=== PATIENT | male | born 1960 | race Caucasian/White ===

== ENCOUNTER 2021-04-18 17:16 | Emergency (ER) | payer BC ==
[~2021-04-18] VITALS: Ht 182.9 cm; Wt 115.2 kg
[2021-04-18 18:15] LABS: BASOPHILS % (AUTO) 0.3 % (0.0-2.0); EOSINOPHILS % (AUTO) 0.5 % (0.0-4.0); HEMATOCRIT 46.1 % (36-54); LYMPHOCYTES % (AUTO) 56.1 % (20.5-51.5); MEAN CORPUSCULAR HEMOGLOBIN 32 pg (27-31); MEAN CORPUSCULAR HGB CONC 35 % (32-36); MEAN CORPUSCULAR VOLUME 91 fL (79.0-98.0); MONOCYTES # (AUTO) 0.7 K/uL (0.0-1.0); MONOCYTES % (AUTO) 13.5 % (1.7-9.3); NEUTROPHILS # (AUTO) 1.6 K/uL (1.8-7.7); NEUTROPHILS % (AUTO) 29.6 % (40.0-70.0); PLATELET COUNT (AUTO) 134 K/uL (130-430); RED BLOOD CELL COUNT(AUTO) 5.06 MIL/uL (4.2-6.2); RED CELL DISTRIBUTION WIDTH 13.3 % (9.0-15.0); WHITE BLOOD COUNT (AUTO) 5.4 K/uL (4.8-10.8)
[2021-04-18 18:26] LABS: CALCIUM 9.5 mg/dL (8.4-11.0); CREATININE 1.08 mg/dL (0.55-1.30); POTASSIUM 4.4 mmol/L (3.5-5.1)
[2021-04-18 18:32] LABS: ALBUMIN 3.7 g/dL (3.4-4.8)
[2021-04-18] MEDS ORDERED: INSULIN REGULAR, HUMAN 10 UNITS/0.1 ML INJ IVP ONE (19:45)
[2021-04-18] MEDS ORDERED: NACL 0.9% 1,000 ML IV ONE (19:45)
[2021-04-18 21:20] VITALS: BP_SYST 146
== END 2021-04-18 21:17 | disposition home or self-care (01) ==
LOC: SED 17:16
DX: U07.1 COVID-19 (principal); I10 Essential (primary) hypertension; E11.9 Type 2 diabetes mellitus without complications; Z20.822 Contact with and (suspected) exposure to COVID-19
CPT/HCPCS: 36415; 71045; 80053; 82962; 83605; 84484; 85025; 87040; 87426; 93005; 99285; J1815

== ENCOUNTER 2021-04-23 00:23 | Inpatient (IN) | payer BC, SELFPAY ==
[~2021-04-23] VITALS: Ht 182.9 cm; Wt 114.8 kg
[2021-04-23 00:54] VITALS: BP_SYST 136
[2021-04-23] MEDS ORDERED: NITROGLYCERIN 0.4 MG TAB.SUBL SL ONE (01:00)
[2021-04-23 01:23] LABS: BASOPHILS % (AUTO) 0.2 % (0.0-2.0); HEMATOCRIT 48.1 % (36-54); HEMOGLOBIN 16.7 g/dL (14.0-18.0); LYMPHOCYTES # (AUTO) 1.6 K/uL (1.0-5.5); LYMPHOCYTES % (AUTO) 29.6 % (20.5-51.5); MEAN CORPUSCULAR HEMOGLOBIN 32 pg (27-31); MEAN CORPUSCULAR HGB CONC 35 % (32-36); MEAN CORPUSCULAR VOLUME 92 fL (79.0-98.0); MONOCYTES # (AUTO) 0.5 K/uL (0.0-1.0); MONOCYTES % (AUTO) 9.4 % (1.7-9.3); NEUTROPHILS # (AUTO) 3.3 K/uL (1.8-7.7); NEUTROPHILS % (AUTO) 60.8 % (40.0-70.0); PLATELET COUNT (AUTO) 139 K/uL (130-430); RED BLOOD CELL COUNT(AUTO) 5.25 MIL/uL (4.2-6.2); RED CELL DISTRIBUTION WIDTH 12.9 % (9.0-15.0); WHITE BLOOD COUNT (AUTO) 5.4 K/uL (4.8-10.8)
[2021-04-23 01:41] LABS: ALANINE AMINOTRANSFERASE 116 U/L (12-78); ALBUMIN 3.4 g/dL (3.4-4.8); ASPARTATE AMINOTRANSFERASE 54 U/L (10-37); CALCIUM 10.1 mg/dL (8.4-11.0); CHLORIDE 94 mmol/L (98-107); CREATININE 1.23 mg/dL (0.55-1.30); GLUCOSE 320 mg/dL (70-99); SODIUM SERUM 131 mmol/L (136-145); TOTAL BILIRUBIN 1.3 mg/dL (0.0-1.0); UREA NITROGEN, BLOOD 11 mg/dL (8-21)
[2021-04-23 01:46] LABS: ANION GAP 10 (5-15); GFR AFRICAN AMERICAN 77 mL/min (>90)
[2021-04-23] MEDS ORDERED: AZITHROMYCIN 250 MG TABLET PO ONE (04:45)
[2021-04-23] MEDS ORDERED: cefTRIAXone 1 GM in D5W 50 ML IV ONE (04:45)
[2021-04-23] MEDS ORDERED: ATEN-41 PO (04:55)
[2021-04-23] MEDS ORDERED: CLOP75TA32 PO (04:57)
[2021-04-23] MEDS ORDERED: METF-834 PO (04:57)
[2021-04-23] MEDS ORDERED: METO25TA6 PO (04:57)
[2021-04-23] MEDS ORDERED: ATOR-1 PO (04:57)
[2021-04-23] MEDS ORDERED: cefTRIAXone 1 GM IVPB PREMIX 50 ML IV ONE (06:04)
[2021-04-23 08:30] VITALS: BP_SYST 140
[2021-04-23] MEDS ORDERED: ACETAMINOPHEN 325 MG TABLET PO PRN (08:45)
[2021-04-23] MEDS ORDERED: DOCUSATE SODIUM 100 MG CAPSULE PO PRN (08:45)
[2021-04-23] MEDS ORDERED: POTASSIUM CHLORIDE 20 MEQ TAB.PRT.SR PO PRN (08:45)
[2021-04-23] MEDS ORDERED: MAGNESIUM SULFATE 50 ML IV PRN (08:45)
[2021-04-23] MEDS ORDERED: ONDANSETRON HCL 4 MG/2 ML VIAL IVP PRN (08:45)
[2021-04-23] MEDS ORDERED: MUPIROCIN 2% TOPICAL OINTMENT 22 GM NS PRN (08:45)
[2021-04-23] MEDS ORDERED: DEXTROSE 50% JECT 50 ML DISP.SYRIN IVP PRN (08:45)
[2021-04-23] MEDS ORDERED: MORPHINE 2 MG/ML INJ. SYRINGE IVP PRN (08:45)
[2021-04-23] MEDS ORDERED: BUDESONIDE 0.5 MG/2 ML AMPUL.NEB INH ONE (09:30)
[2021-04-23] MEDS ORDERED: BUDESONIDE 0.5 MG/2 ML AMPUL.NEB ONE (09:38)
[2021-04-23] MEDS: ASCORBIC ACID 500 MG TABLET PO SCH (09:55)
[2021-04-23] MEDS: ATENOLOL 25 MG TABLET(TENORMIN) PO SCH (09:55)
[2021-04-23] MEDS: DECADRON 4 MG TABLET PO SCH (09:56)
[2021-04-23] MEDS: ATORVASTATIN 20 MG TABLET PO SCH (09:56)
[2021-04-23] MEDS: AZITHROMYCIN 250 MG TABLET PO SCH (09:56)
[2021-04-23] MEDS: CHOLECALCIFEROL (VITAMIN D3) 2,000 UNIT TABLET PO SCH (09:56)
[2021-04-23] MEDS: ENOXAPARIN SODIUM 40 MG/0.4 ML SYRINGE SUBCUT SCH (09:57)
[2021-04-23 10:52] VITALS: BP_SYST 140
[2021-04-23] MEDS: cefTRIAXone 1 GM in D5W 50 ML IV SCH (11:00)
[2021-04-23 12:00] VITALS: BP_SYST 124
[2021-04-23] MEDS: INSULIN LISPRO SLIDING SCALE 100 UNITS/ML VIAL (humaLOG) SUBCUT PRN ×3 (12:25→21:08)
[2021-04-23 16:00] VITALS: BP_SYST 135
[2021-04-23 19:45] VITALS: BP_SYST 102
[2021-04-24 00:31] VITALS: BP_SYST 119
[2021-04-24] MEDS: INSULIN LISPRO SLIDING SCALE 100 UNITS/ML VIAL (humaLOG) SUBCUT PRN ×4 (06:13→20:55)
[2021-04-24 06:48] LABS: BASOPHILS % (AUTO) 0.3 % (0.0-2.0); HEMATOCRIT 44.6 % (36-54); HEMOGLOBIN 15.5 g/dL (14.0-18.0); LYMPHOCYTES # (AUTO) 1.2 K/uL (1.0-5.5); LYMPHOCYTES % (AUTO) 32.3 % (20.5-51.5); MEAN CORPUSCULAR HEMOGLOBIN 31 pg (27-31); MEAN CORPUSCULAR HGB CONC 35 % (32-36); MEAN CORPUSCULAR VOLUME 90 fL (79.0-98.0); MONOCYTES # (AUTO) 0.4 K/uL (0.0-1.0); NEUTROPHILS # (AUTO) 2.1 K/uL (1.8-7.7); NEUTROPHILS % (AUTO) 55.4 % (40.0-70.0); PLATELET COUNT (AUTO) 137 K/uL (130-430); RED BLOOD CELL COUNT(AUTO) 4.94 MIL/uL (4.2-6.2); RED CELL DISTRIBUTION WIDTH 13.5 % (9.0-15.0); WHITE BLOOD COUNT (AUTO) 3.7 K/uL (4.8-10.8)
[2021-04-24 07:00] LABS: CALCIUM 8.7 mg/dL (8.4-11.0); CREATININE 0.94 mg/dL (0.55-1.30); POTASSIUM 4.3 mmol/L (3.5-5.1); TOTAL BILIRUBIN 1.4 mg/dL (0.0-1.0)
[2021-04-24] MEDS: BUDESONIDE 0.5 MG/2 ML AMPUL.NEB INH SCH ×2 (07:00→19:00)
[2021-04-24 07:43] LABS: C-REACTIVE PROTEIN QUANT 0.6 mg/dL (0-0.5)
[2021-04-24 08:00] VITALS: BP_SYST 140
[2021-04-24] MEDS: ATORVASTATIN 20 MG TABLET PO SCH (08:44)
[2021-04-24] MEDS: CHOLECALCIFEROL (VITAMIN D3) 2,000 UNIT TABLET PO SCH (08:45)
[2021-04-24] MEDS: ASCORBIC ACID 500 MG TABLET PO SCH (08:45)
[2021-04-24] MEDS: DECADRON 4 MG TABLET PO SCH (08:45)
[2021-04-24] MEDS: ATENOLOL 25 MG TABLET(TENORMIN) PO SCH (08:45)
[2021-04-24] MEDS: AZITHROMYCIN 250 MG TABLET PO SCH (08:45)
[2021-04-24] MEDS: ENOXAPARIN SODIUM 40 MG/0.4 ML SYRINGE SUBCUT SCH (08:56)
[2021-04-24 10:12] LABS: ERYTHROCYTE SEDIMENTATION RATE 6 MM/HR (0-15)
[2021-04-24] MEDS: cefTRIAXone 1 GM in D5W 50 ML IV SCH (11:28)
[2021-04-24 12:00] VITALS: BP_SYST 117
[2021-04-24] MEDS ORDERED: COMMUNICATION ORDER XX ONE (15:45)
[2021-04-24 16:00] VITALS: BP_SYST 153
[2021-04-24 20:00] VITALS: BP_SYST 129
[2021-04-25] VITALS: BP_SYST 122
[2021-04-25] MEDS: INSULIN NPH 100 UNITS/ML 10 ML VIAL SUBCUT SCH ×2 (06:11→16:50)
[2021-04-25] MEDS: INSULIN LISPRO SLIDING SCALE 100 UNITS/ML VIAL (humaLOG) SUBCUT PRN ×4 (06:13→20:57)
[2021-04-25 06:35] LABS: BASOPHILS % (AUTO) 0.1 % (0.0-2.0); HEMATOCRIT 43.6 % (36-54); HEMOGLOBIN 15.2 g/dL (14.0-18.0); LYMPHOCYTES % (AUTO) 21.5 % (20.5-51.5); MEAN CORPUSCULAR HEMOGLOBIN 31 pg (27-31); MEAN CORPUSCULAR HGB CONC 35 % (32-36); MEAN CORPUSCULAR VOLUME 90 fL (79.0-98.0); MONOCYTES # (AUTO) 0.7 K/uL (0.0-1.0); MONOCYTES % (AUTO) 8.1 % (1.7-9.3); NEUTROPHILS # (AUTO) 6.5 K/uL (1.8-7.7); NEUTROPHILS % (AUTO) 70.3 % (40.0-70.0); PLATELET COUNT (AUTO) 169 K/uL (130-430); RED BLOOD CELL COUNT(AUTO) 4.86 MIL/uL (4.2-6.2); RED CELL DISTRIBUTION WIDTH 13.3 % (9.0-15.0); WHITE BLOOD COUNT (AUTO) 9.2 K/uL (4.8-10.8)
[2021-04-25 06:47] LABS: C-REACTIVE PROTEIN QUANT 0.8 mg/dL (0-0.5); CALCIUM 8.6 mg/dL (8.4-11.0); CREATININE 0.96 mg/dL (0.55-1.30); POTASSIUM 4.8 mmol/L (3.5-5.1)
[2021-04-25] MEDS: BUDESONIDE 0.5 MG/2 ML AMPUL.NEB INH SCH ×2 (07:13→19:00)
[2021-04-25 08:31] VITALS: BP_SYST 143
[2021-04-25] MEDS: CHOLECALCIFEROL (VITAMIN D3) 2,000 UNIT TABLET PO SCH (08:40)
[2021-04-25] MEDS: AZITHROMYCIN 250 MG TABLET PO SCH (08:40)
[2021-04-25] MEDS: BENZONATATE 100 MG CAPSULE (TESSALON) PO SCH ×3 (08:40→20:50)
[2021-04-25] MEDS: ASCORBIC ACID 500 MG TABLET PO SCH (08:41)
[2021-04-25] MEDS: ATENOLOL 25 MG TABLET(TENORMIN) PO SCH (08:41)
[2021-04-25] MEDS: ATORVASTATIN 20 MG TABLET PO SCH (08:42)
[2021-04-25] MEDS: DECADRON 4 MG TABLET PO SCH (08:42)
[2021-04-25] MEDS: ENOXAPARIN SODIUM 40 MG/0.4 ML SYRINGE SUBCUT SCH (08:42)
[2021-04-25 10:25] LABS: ERYTHROCYTE SEDIMENTATION RATE 8 MM/HR (0-15)
[2021-04-25] MEDS: cefTRIAXone 1 GM in D5W 50 ML IV SCH (11:13)
[2021-04-25 11:28] VITALS: BP_SYST 125
[2021-04-25 15:07] VITALS: BP_SYST 119
[2021-04-25 16:04] LABS: CALCIUM 8.6 mg/dL (8.4-11.0); CREATININE 0.99 mg/dL (0.55-1.30); POTASSIUM 4.7 mmol/L (3.5-5.1)
[2021-04-25 16:10] LABS: PROTHROMBIN TIME 10.6 SECS (9.5-12.5)
[2021-04-25 16:18] LABS: ALBUMIN 3.1 g/dL (3.4-4.8); TOTAL BILIRUBIN 1.1 mg/dL (0.0-1.0)
[2021-04-25 20:00] VITALS: BP_SYST 139
[2021-04-25] MEDS: ZOLPIDEM TARTRATE 5 MG TABLET PO PRN (22:52)
[2021-04-25 22:55] VITALS: BP_SYST 135
[2021-04-26] MEDS: INSULIN LISPRO SLIDING SCALE 100 UNITS/ML VIAL (humaLOG) SUBCUT PRN ×4 (06:06→21:57)
[2021-04-26] MEDS: INSULIN NPH 100 UNITS/ML 10 ML VIAL SUBCUT SCH ×2 (06:07→17:30)
[2021-04-26 06:28] LABS: BASOPHILS % (AUTO) 0.1 % (0.0-2.0); HEMATOCRIT 42.1 % (36-54); LYMPHOCYTES # (AUTO) 1.9 K/uL (1.0-5.5); LYMPHOCYTES % (AUTO) 27.6 % (20.5-51.5); MEAN CORPUSCULAR HEMOGLOBIN 32 pg (27-31); MEAN CORPUSCULAR HGB CONC 36 % (32-36); MEAN CORPUSCULAR VOLUME 89 fL (79.0-98.0); MONOCYTES # (AUTO) 0.7 K/uL (0.0-1.0); MONOCYTES % (AUTO) 9.5 % (1.7-9.3); NEUTROPHILS # (AUTO) 4.4 K/uL (1.8-7.7); NEUTROPHILS % (AUTO) 62.8 % (40.0-70.0); PLATELET COUNT (AUTO) 176 K/uL (130-430); RED BLOOD CELL COUNT(AUTO) 4.72 MIL/uL (4.2-6.2); RED CELL DISTRIBUTION WIDTH 13.2 % (9.0-15.0)
[2021-04-26 06:31] LABS: PROTHROMBIN TIME 10.4 SECS (9.5-12.5)
[2021-04-26 06:57] LABS: ALBUMIN 2.8 g/dL (3.4-4.8); CALCIUM 8.6 mg/dL (8.4-11.0); CREATININE 0.96 mg/dL (0.55-1.30); POTASSIUM 4.5 mmol/L (3.5-5.1); TOTAL BILIRUBIN 1.1 mg/dL (0.0-1.0)
[2021-04-26] MEDS: BUDESONIDE 0.5 MG/2 ML AMPUL.NEB INH SCH ×2 (07:26→19:45)
[2021-04-26] MEDS: AZITHROMYCIN 250 MG TABLET PO SCH (08:24)
[2021-04-26] MEDS: ASCORBIC ACID 500 MG TABLET PO SCH (08:24)
[2021-04-26] MEDS: DECADRON 4 MG TABLET PO SCH (08:24)
[2021-04-26] MEDS: BENZONATATE 100 MG CAPSULE (TESSALON) PO SCH ×3 (08:24→21:55)
[2021-04-26] MEDS: ATENOLOL 25 MG TABLET(TENORMIN) PO SCH (08:24)
[2021-04-26] MEDS: CHOLECALCIFEROL (VITAMIN D3) 2,000 UNIT TABLET PO SCH (08:24)
[2021-04-26] MEDS: ATORVASTATIN 20 MG TABLET PO SCH (08:24)
[2021-04-26] MEDS: ENOXAPARIN SODIUM 40 MG/0.4 ML SYRINGE SUBCUT SCH (08:25)
[2021-04-26 08:26] VITALS: BP_SYST 127
[2021-04-26 08:30] VITALS: BP_SYST 127
[2021-04-26 09:02] LABS: C-REACTIVE PROTEIN QUANT 1.1 mg/dL (0-0.5)
[2021-04-26 09:26] LABS: ERYTHROCYTE SEDIMENTATION RATE 9 MM/HR (0-15)
[2021-04-26] MEDS: cefTRIAXone 1 GM in D5W 50 ML IV SCH (11:21)
[2021-04-26 11:32] VITALS: BP_SYST 127
[2021-04-26 16:23] VITALS: BP_SYST 124
[2021-04-26 20:00] VITALS: BP_SYST 158
[2021-04-26] MEDS: ZOLPIDEM TARTRATE 5 MG TABLET PO PRN (21:56)
[2021-04-27] VITALS: BP_SYST 138
[2021-04-27] MEDS: INSULIN NPH 100 UNITS/ML 10 ML VIAL SUBCUT SCH ×2 (06:19→17:23)
[2021-04-27] MEDS: INSULIN LISPRO SLIDING SCALE 100 UNITS/ML VIAL (humaLOG) SUBCUT PRN ×4 (06:21→21:57)
[2021-04-27] MEDS: BUDESONIDE 0.5 MG/2 ML AMPUL.NEB INH SCH ×2 (07:00→11:15)
[2021-04-27 08:00] VITALS: BP_SYST 92
[2021-04-27] MEDS ORDERED: SENNOSIDES 8.6 MG TABLET PO SCH (09:00)
[2021-04-27 09:17] LABS: LYMPHOCYTES # (AUTO) 2.9 K/uL (1.0-5.5); LYMPHOCYTES % (AUTO) 34.5 % (20.5-51.5); MEAN CORPUSCULAR HEMOGLOBIN 32 pg (27-31); MONOCYTES # (AUTO) 0.9 K/uL (0.0-1.0); NEUTROPHILS # (AUTO) 4.6 K/uL (1.8-7.7); RED CELL DISTRIBUTION WIDTH 13.3 % (9.0-15.0); WHITE BLOOD COUNT (AUTO) 8.4 K/uL (4.8-10.8)
[2021-04-27] MEDS: DECADRON 4 MG TABLET PO SCH (09:17)
[2021-04-27] MEDS: ATORVASTATIN 20 MG TABLET PO SCH (09:17)
[2021-04-27] MEDS: CHOLECALCIFEROL (VITAMIN D3) 2,000 UNIT TABLET PO SCH (09:18)
[2021-04-27] MEDS: ASCORBIC ACID 500 MG TABLET PO SCH (09:18)
[2021-04-27] MEDS: BENZONATATE 100 MG CAPSULE (TESSALON) PO SCH ×3 (09:18→21:43)
[2021-04-27] MEDS: AZITHROMYCIN 250 MG TABLET PO SCH (09:18)
[2021-04-27] MEDS: ATENOLOL 25 MG TABLET(TENORMIN) PO SCH (09:19)
[2021-04-27] MEDS: ENOXAPARIN SODIUM 40 MG/0.4 ML SYRINGE SUBCUT SCH (09:31)
[2021-04-27 09:34] LABS: EOSINOPHILS % (AUTO) 0.1 % (0.0-4.0); HEMATOCRIT 45.2 % (36-54); HEMOGLOBIN 15.8 g/dL (14.0-18.0); MEAN CORPUSCULAR HGB CONC 35 % (32-36); MEAN CORPUSCULAR VOLUME 91 fL (79.0-98.0); MONOCYTES % (AUTO) 10.9 % (1.7-9.3); NEUTROPHILS % (AUTO) 54.5 % (40.0-70.0); PLATELET COUNT (AUTO) 238 K/uL (130-430); RED BLOOD CELL COUNT(AUTO) 4.98 MIL/uL (4.2-6.2)
[2021-04-27 10:34] LABS: ERYTHROCYTE SEDIMENTATION RATE 9 MM/HR (0-15)
[2021-04-27] MEDS: cefTRIAXone 1 GM in D5W 50 ML IV SCH (11:35)
[2021-04-27 12:00] VITALS: BP_SYST 126; BP_SYST 135
[2021-04-27 12:50] LABS: ALBUMIN 3.1 g/dL (3.4-4.8); CALCIUM 8.9 mg/dL (8.4-11.0); CREATININE 1.01 mg/dL (0.55-1.30); POTASSIUM 4.3 mmol/L (3.5-5.1); TOTAL BILIRUBIN 1.2 mg/dL (0.0-1.0)
[2021-04-27] MEDS ORDERED: D5NS 1,000 ML IV SCH (14:00)
[2021-04-27 16:00] VITALS: BP_SYST 139
[2021-04-27] MEDS: NACL 0.9% 1,000 ML IV SCH ×2 (17:15→17:24)
[2021-04-27] MEDS: LORazepam 2 MG/ML VIAL IVP PRN ×2 (18:45→23:15)
[2021-04-27 19:55] VITALS: BP_SYST 146
[2021-04-27] MEDS: INSULIN NPH/REGULAR 70-30, 100 UNITS/ML, 10 ML VIAL SUBCUT SCH (22:00)
[2021-04-27] MEDS: ZOLPIDEM TARTRATE 5 MG TABLET PO PRN (23:14)
[2021-04-28] VITALS: BP_SYST 126
[2021-04-28] MEDS: NACL 0.9% 1,000 ML IV SCH ×2 (04:54→18:06)
[2021-04-28] MEDS: INSULIN NPH/REGULAR 70-30, 100 UNITS/ML, 10 ML VIAL SUBCUT SCH ×2 (06:23→17:20)
[2021-04-28] MEDS: INSULIN LISPRO SLIDING SCALE 100 UNITS/ML VIAL (humaLOG) SUBCUT PRN ×4 (06:26→21:07)
[2021-04-28 06:56] LABS: BASOPHILS % (AUTO) 0.1 % (0.0-2.0); EOSINOPHILS % (AUTO) 0.2 % (0.0-4.0); HEMOGLOBIN 14.8 g/dL (14.0-18.0); LYMPHOCYTES # (AUTO) 2.1 K/uL (1.0-5.5); MEAN CORPUSCULAR HEMOGLOBIN 32 pg (27-31); MEAN CORPUSCULAR HGB CONC 35 % (32-36); MEAN CORPUSCULAR VOLUME 89 fL (79.0-98.0); MONOCYTES # (AUTO) 0.9 K/uL (0.0-1.0); MONOCYTES % (AUTO) 10.7 % (1.7-9.3); NEUTROPHILS # (AUTO) 5.1 K/uL (1.8-7.7); PLATELET COUNT (AUTO) 254 K/uL (130-430); RED BLOOD CELL COUNT(AUTO) 4.71 MIL/uL (4.2-6.2); RED CELL DISTRIBUTION WIDTH 13.3 % (9.0-15.0); WHITE BLOOD COUNT (AUTO) 8.1 K/uL (4.8-10.8)
[2021-04-28] MEDS: BUDESONIDE 0.5 MG/2 ML AMPUL.NEB INH SCH ×2 (07:00→19:49)
[2021-04-28 08:31] VITALS: BP_SYST 145
[2021-04-28] MEDS: DECADRON 4 MG TABLET PO SCH (08:35)
[2021-04-28] MEDS: CHOLECALCIFEROL (VITAMIN D3) 2,000 UNIT TABLET PO SCH (08:35)
[2021-04-28] MEDS: ASCORBIC ACID 500 MG TABLET PO SCH (08:35)
[2021-04-28] MEDS: BENZONATATE 100 MG CAPSULE (TESSALON) PO SCH ×3 (08:36→20:46)
[2021-04-28] MEDS: ATORVASTATIN 20 MG TABLET PO SCH (08:36)
[2021-04-28] MEDS: ATENOLOL 25 MG TABLET(TENORMIN) PO SCH (08:36)
[2021-04-28] MEDS: ENOXAPARIN SODIUM 40 MG/0.4 ML SYRINGE SUBCUT SCH (08:40)
[2021-04-28 08:55] LABS: ERYTHROCYTE SEDIMENTATION RATE 9 MM/HR (0-15)
[2021-04-28 10:52] LABS: ALBUMIN 2.9 g/dL (3.4-4.8); CALCIUM 8.4 mg/dL (8.4-11.0); CREATININE 1.19 mg/dL (0.55-1.30); POTASSIUM 4.5 mmol/L (3.5-5.1); TOTAL BILIRUBIN 0.8 mg/dL (0.0-1.0)
[2021-04-28] MEDS: cefTRIAXone 1 GM in D5W 50 ML IV SCH (11:51)
[2021-04-28 13:17] VITALS: BP_SYST 124
[2021-04-28 16:56] VITALS: BP_SYST 123
[2021-04-28 20:00] VITALS: BP_SYST 124
[2021-04-28] MEDS: ZOLPIDEM TARTRATE 5 MG TABLET PO PRN (20:51)
[2021-04-29 00:22] VITALS: BP_SYST 159
[2021-04-29] MEDS: INSULIN NPH/REGULAR 70-30, 100 UNITS/ML, 10 ML VIAL SUBCUT SCH (06:41)
[2021-04-29] MEDS: INSULIN LISPRO SLIDING SCALE 100 UNITS/ML VIAL (humaLOG) SUBCUT PRN (06:42)
[2021-04-29] MEDS: NACL 0.9% 1,000 ML IV SCH (06:45)
[2021-04-29] MEDS: BUDESONIDE 0.5 MG/2 ML AMPUL.NEB INH SCH (07:00)
[2021-04-29 08:00] VITALS: BP_SYST 144
[2021-04-29] MEDS ORDERED: DOXY100C PO (08:17)
[2021-04-29] MEDS ORDERED: DEXA6TAB5 PO (08:17)
[2021-04-29] MEDS ORDERED: ASPI-862 PO (08:17)
[2021-04-29] MEDS ORDERED: METF1000 PO (08:25)
[2021-04-29] MEDS: DECADRON 4 MG TABLET PO SCH (08:59)
[2021-04-29] MEDS: ASCORBIC ACID 500 MG TABLET PO SCH (09:00)
[2021-04-29] MEDS: BENZONATATE 100 MG CAPSULE (TESSALON) PO SCH (09:01)
[2021-04-29] MEDS: ATORVASTATIN 20 MG TABLET PO SCH (09:02)
[2021-04-29] MEDS: CHOLECALCIFEROL (VITAMIN D3) 2,000 UNIT TABLET PO SCH (09:02)
[2021-04-29] MEDS: ENOXAPARIN SODIUM 40 MG/0.4 ML SYRINGE SUBCUT SCH (09:03)
[2021-04-29] MEDS: ATENOLOL 25 MG TABLET(TENORMIN) PO SCH (09:03)
[2021-04-29 09:22] VITALS: BP_SYST 144
== END 2021-04-29 10:31 | disposition home or self-care (01) | DRG 177 ==
LOC: SED 00:23 → STU 05:07
PROVIDERS: ADMIT General Practice; ATTEND General Practice
PROC: XW033E5 Introduction of Remdesivir Anti-infective into Peripheral Vein, Percutaneous Approach, New Technology Group 5 (ICD-10-PCS; principal; 2021-04-25)
DX: U07.1 COVID-19 (principal); J12.82 Pneumonia due to coronavirus disease 2019; J96.01 Acute respiratory failure with hypoxia; E87.1 Hypo-osmolality and hyponatremia; J98.11 Atelectasis; E44.0 Moderate protein-calorie malnutrition; E11.65 Type 2 diabetes mellitus with hyperglycemia; E66.01 Morbid (severe) obesity due to excess calories; I25.10 Atherosclerotic heart disease of native coronary artery without angina pectoris; I10 Essential (primary) hypertension; R26.2 Difficulty in walking, not elsewhere classified; R74.01 Elevation of levels of liver transaminase levels; Z95.5 Presence of coronary angioplasty implant and graft; Z68.34 Body mass index [BMI] 34.0-34.9, adult
CPT/HCPCS: 36415; 36600; 71045; 80048; 80053; 82550; 82728; 82803-TC; 82962; 83036; 83735; 84484; 85025; 85379; 85610-TC; 85651-TC; 86140; 86900; 86901; 87040-TC; 93005; 94010; 94640; 94760; 96365; 99285; G0378; J0696; J1650; J1815; J2060; J7050; J7060; J7626; J8540; Q0144